=== PATIENT | male | born 2000 | race Caucasian/White ===

== ENCOUNTER 2020-03-04 13:02 | Emergency (ER) | payer SELFPAY ==
[~2020-03-04] VITALS: Ht 182.9 cm; Wt 115.5 kg
[2020-03-04 14:09] LABS: BASO # 0.1 10^3/uL (0.0-0.2); BASO % 0.8 % (0.0-1.0); EOS # 0.1 10^3/uL (0.0-0.5); EOS % 1.4 % (0.0-3.0); HEMATOCRIT 46.6 % (42.0-52.0); HEMOGLOBIN 15.6 g/dl (13.5-17.5); MEAN CORPUSCULAR HEMOGLOBIN 28.3 pg (27.0-33.0); MEAN CORPUSCULAR HGB CONC 33.5 g/dl (32.0-36.5); MEAN CORPUSCULAR VOLUME 84.6 fl (80.0-96.0); MONO # 0.4 10^3/uL (0.0-0.8); MONO % 6.5 % (0.0-5.0); NEUTROPHILS # 3.8 10^3/uL (1.5-8.5); PLATELET COUNT, AUTOMATED 269 10^3/uL (150-450); RED BLOOD COUNT 5.51 10^6/uL (4.30-6.10); WHITE BLOOD COUNT 6.3 10^3/uL (4.0-10.0)
--- NOTE | 2020-03-04 14:32 | REP ---
INDICATION: ruq, epigastric pain, yellow stools. COMPARISON: None. TECHNIQUE: Abdominal right upper quadrant ultrasound. The study is very limited as the only available ultrasound scanning windows were intercostal windows. FINDINGS: There is no cholelithiasis, gallbladder wall thickening or pericholecystic fluid. There is no intrahepatic or extrahepatic biliary duct dilatation. The common biliary duct measures 4 mm in diameter. There are very limited views of the liver. No abnormalities are identified on these views. The pancreas is obscured by bowel gas. There are limited views of the right kidney. The right kidney measures 9.8 x 5.8 x 4.1 cm and is normal size. No hydronephrosis, calculus, solid mass or cystic mass of the right kidney are identified on these limited views. IMPRESSION: Limited study due to having to scan only through intercostal windows. No abnormalities are identified on these limited views. The pancreas is obscured and portions of the hepatic parenchyma are obscured. Additionally, there are limited views of the right kidney. <Electronically signed by Scott Darnell > 03/04/20 0007
[2020-03-04 14:44] LABS: ALBUMIN 3.9 GM/DL (3.2-5.2); ALT/SGPT 54 U/L (12-78); BILIRUBIN,DIRECT 0.2 MG/DL (0.0-0.2); BILIRUBIN,TOTAL 0.6 MG/DL (0.2-1.0); BLOOD UREA NITROGEN 15 MG/DL (7-18); CALCIUM LEVEL 9.2 MG/DL (8.5-10.1); CARBON DIOXIDE LEVEL 28 MEQ/L (21-32); CHLORIDE LEVEL 108 MEQ/L (98-107); CREATININE FOR GFR 1.09 MG/DL (0.70-1.30); GLUCOSE, FASTING 88 MG/DL (70-100); LIPASE 129 U/L (73-393); POTASSIUM SERUM 4.4 MEQ/L (3.5-5.1); SODIUM LEVEL 142 MEQ/L (136-145); TOTAL PROTEIN 7.3 GM/DL (6.4-8.2)
[2020-03-04] MEDS ORDERED: ISOVUE-370 76% 100ML VIAL As Ordered ONE (15:09)
--- NOTE | 2020-03-04 15:39 | REP ---
INDICATION: upper abdominal pain into back COMPARISON: None. TECHNIQUE: CT Scan of the abdomen and pelvis was performed with intravenous administration of 100 cc of Isovue 370, without oral contrast. FINDINGS: Lung bases: Unremarkable. Liver: There is diffuse fatty infiltration of the liver. Gallbladder: Unremarkable. Spleen: There are multiple calcified granulomas in the spleen. Adrenals: Normal. Pancreas: Normal. Kidneys: Normal. Small and large bowel: Unremarkable. No free air or obstruction. Free fluid: None. Abdominal aorta: No aneurysm or dissection. Adenopathy: None. Appendix: Not inflamed. Osseous structures: Unremarkable. Pelvis: No mass. IMPRESSION: No acute abnormalities detected. <Electronically signed by Scott Kitchen > 03/04/20 [id number]
[2020-03-04 15:44] VITALS: BP 125/62
== END 2020-03-04 16:36 | disposition home or self-care (01) ==
LOC: M ED 13:02
DX: M54.9 Dorsalgia, unspecified (principal); R10.9 Unspecified abdominal pain; R19.7 Diarrhea, unspecified; Z88.0 Allergy status to penicillin
CPT/HCPCS: 74177; 76705; 80048; 80076; 81001; 83690; 85025; 99284; Q9967

== ENCOUNTER 2020-10-10 22:49 | Emergency (ER) | payer SELFPAY ==
[~2020-10-10] VITALS: Ht 182.9 cm; Wt 120.0 kg
[2020-10-11] MEDS ORDERED: TETRACAINE 0.5% OPHTH SOLN 4ML OS ONE (07:15)
[2020-10-11] MEDS ORDERED: FLUORESCEIN OPHTH 1 MG STRIP OS ONE (07:15)
[2020-10-11] MEDS ORDERED: OCUF0.25 OP (07:36)
[2020-10-11 07:49] VITALS: BP 132/94
== END 2020-10-11 07:50 | disposition home or self-care (01) ==
LOC: M ED 22:49
DX: S05.00XA Injury of conjunctiva and corneal abrasion without foreign body, unspecified eye, initial encounter (principal); W22.8XXA Striking against or struck by other objects, initial encounter; Y92.099 Unspecified place in other non-institutional residence as the place of occurrence of the external cause; Y93.9 Activity, unspecified; Y99.9 Unspecified external cause status; Z88.0 Allergy status to penicillin